=== PATIENT | male | born 1970 | race Caucasian/White ===

== ENCOUNTER 2019-09-25 12:01 | Emergency (ER) | payer MEDICAID ==
[~2019-09-25] VITALS: Ht 185.4 cm; Wt 99.8 kg
[2019-09-25 12:12] VITALS: BP 133/103
[2019-09-25] MEDS: FUROSEMIDE 100 MG/10 ML VIAL IVP ONE (12:57)
[2019-09-25 12:59] LABS: BASOPHILS % (AUTO) 0.5 % (0.0-2.0); EOSINOPHILS % (AUTO) 0.3 % (0.0-4.0); HEMATOCRIT 49.3 % (36-52); HEMOGLOBIN 15.4 g/dL (12.0-18.0); LYMPHOCYTES # (AUTO) 1.6 K/uL (2.0-11.5); MEAN CORPUSCULAR HEMOGLOBIN 28 pg (27-31); MEAN CORPUSCULAR HGB CONC 31 g/dL (33-37); MEAN CORPUSCULAR VOLUME 89.8 fL (80-94); MONOCYTES # (AUTO) 0.8 K/uL (0.8-1.0); NEUTROPHILS # (AUTO) 4.1 K/uL (1.8-7.7); NEUTROPHILS % (AUTO) 63.2 % (42.2-75.2); PLATELET COUNT (AUTO) 183 K/uL (140-450); RED BLOOD CELL COUNT(AUTO) 5.48 MIL/uL (4.20-6.10); RED CELL DISTRIBUTION WIDTH 16.9 % (11.6-13.7); WHITE BLOOD COUNT (AUTO) 6.5 K/uL (4.8-10.8)
[2019-09-25] MEDS: ENALAPRILAT 2.5 MG/2 ML VIAL IVP ONE (13:01)
[2019-09-25 13:12] LABS: ANION GAP 16.6 (8-16); CARBON DIOXIDE 22.7 mmol/L (21-32); CREATININE 1.7 mg/dL (0.7-1.3); POTASSIUM 5.3 mmol/L (3.5-5.1)
[2019-09-25 13:13] LABS: PROTHROMBIN TIME 14.4 secs (10.8-13.4)
[2019-09-25 13:17] LABS: ALBUMIN 2.6 g/dL (3.4-5.0); BILIRUBIN,DIRECT 1.3 mg/dL (0.0-0.3); TOTAL BILIRUBIN 2.3 mg/dL (0.0-1.0)
[2019-09-25 13:19] LABS: ACETONE, SERUM NEGATIVE (NEGATIVE)
[2019-09-25 13:37] LABS: GAMMA GLUTAMYL TRANSFERASE 77 U/L (7-51); MAGNESIUM 1.7 mg/dL (1.8-2.4); URIC ACID 9.9 mg/dL (2.6-7.2)
[2019-09-25 14:19] LABS: C-REACTIVE PROTEIN QUANT 4.1 mg/dL (0.0-0.9)
[2019-09-25] MEDS ORDERED: PIPERACILLIN/TAZOBACTAM 3.375 GM VIAL IV ONE (15:05)
[2019-09-25] MEDS: DIGOXIN 0.25 MG/ML AMP IV ONE (15:19)
[2019-09-25] MEDS: PIPERACILLIN/TAZOBACTAM 3.375 GM in DEXTROSE 5% 50 ML IV ONE (15:20)
[2019-09-25] MEDS: FLUCONAZOLE 100 MG TAB PO ONE (15:20)
[2019-09-25 15:44] VITALS: BP 109/65
== END 2019-09-25 15:44 | disposition short-term general hospital (02) ==
LOC: MED 12:01
DX: I50.810 Right heart failure, unspecified (principal); R00.0 Tachycardia, unspecified; I48.92 Unspecified atrial flutter; R94.5 Abnormal results of liver function studies; K40.20 Bilateral inguinal hernia, without obstruction or gangrene, not specified as recurrent; N18.3 Chronic kidney disease, stage 3 (moderate); E87.2 Acidosis; N43.3 Hydrocele, unspecified; B35.6 Tinea cruris; F19.10 Other psychoactive substance abuse, uncomplicated
CPT/HCPCS: 36415; 36600; 71045; 74176; 80053; 80076; 82009; 82140; 82150; 82803; 82977; 83036; 83605; 83690; 83735; 83880; 84484; 84550; 85025; 85379; 85610; 85651; 86140; 86703; 87040; 93005; 96365; 96366; 96375; 99291; G0482; J1160; J1940; J2543; J3490; Q0092